=== PATIENT | female | born 2005 | race Caucasian/White ===

== ENCOUNTER 2025-03-26 10:31 | Observation (INO) | payer OTHER, SELFPAY ==
--- OUTSIDE RECORDS SUMMARY | 2025-03-26 10:42 | XMS_ITS ---
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 Name Role Phone Dioni Miranda Primary Care Provider Jose Staley [phone] Est Care Social History Sex Assigned At : Social History Observation Description Sex Assigned At Female Encounters Encounter Location Date Provider Diagnosis [address] [place] [address] 02/12/2025 Jose Staley Plan Of Treatment No Information Progress Notes * Coby WORTHINGTONOB:2005 (19 yo F)Acc No.[id number]:02/12/2025 UNLOCKED PROGRESS NOTE Progress Notes Patient: Neris DAN Provider: Inna Staley :2005 A ge:19 Y S ex:Female Date:02/12/2025 Address:[address] [facility] Pcp:Dioni Miranda Subjective: * Chief Complaints: * [address] Est Care. * Medical History: Objective: * Vitals: Assessment: Plan: * Treatment: * * Electronic signature of Beverley Staley , [id number] on 03/26/2025 at 10:41 AM CDT Sign off status: Pending * Provider: Inna Staley Date: 0 02/12/2025 Generated for Hayde proctor/Fatressag/eTransmitting on: 0 03/26/2025 10:41 AM CDT
--- OUTSIDE RECORDS SUMMARY | 2025-03-26 10:42 | XMS_ITS | Patient Health Record ---
Author Organization [facility] Address [address] [place] [address] Care Team Providers Care [employer] Officer Name Role Phone Dioni Miranda Primary Care Provider Jose Staley Unavailable [phone] Kassie Proctor Unavailable [phone] Lorena Cantor Unavailable [phone] Kirstin Quiros Unavailable [phone] Allergies No Known Allergies Results Component Value Reference Range Notes CBC With Differential/Platel et* Reviewed date:01/21/2025 03:11:15 PM Interpretation: Performing Lab: Notes/Report: CMP 14 Comprehensive Metabol ic Panel* Reviewed date:01/21/2025 03:11:59 PM Interpretation: Performing Lab: Notes/Report: Hepatitis C Virus Antibody w /Rflx to Quantitative Real-time PCR ([id number]) Reviewed date:01/21/2025 03:12:33 PM Interpretation: Performing Lab: Notes/Report: HIV Screen *HIV 1, 2 Ab, p24 Ag ([id number]) Reviewed date:01/21/2025 03:12:55 PM Interpretation: Performing Lab: Notes/Report: RPR w/reflex to TrepSure Reviewed date:01/21/2025 03:13:15 PM Interpretation: Performing Lab: Notes/Report: QuantiFERON-TB Gold Plus ([id number]) Reviewed date:12/21/2024 06:07:30 PM Interpretation: Performing Lab:[facility] [place], [address] [facility], Phone - [phone], Director [facility] Notes/Report: QuantiFERON Incubation Incubation performed. QuantiFERON-TB Gold Plus Negative Negative No response to M tuberculosis antigens detected. Infection with M tuberculosis is unlikely, but high risk individuals should be considered for additional testing (ATS/IDSA/CDC Clinical Practice Guidelines, 2017). The reference range is an Antigen minus Nil result of <0.35 IU/mL. Chemiluminescence immunoassay methodology QuantiFERON Criteria QuantiFERON-TB Gold Plus is a qualitative indirect test for M tuberculosis infection (including disease) and is intended for use in conjunction with risk assessment, radiography, and other medical and diagnostic evaluations. The QuantiFERON-TB Gold Plus result is determined by subtracting the Nil value from either TB antigen (Ag) value. The Mitogen tube serves as a control for the test. QuantiFERON TB1 Ag Value 0.02 QuantiFERON TB2 Ag Value 0.03 QuantiFERON Nil Value 0.02 QuantiFERON Mitogen Value >10.00 12 Panel Urine Drug Screen Reviewed date:10/08/2024 01:09:15 PM Interpretation: Performing Lab: Notes/Report: THC POS SOFIA neg MOP (OPI) neg AMP POS MET POS BAR neg BZO POS MDMA neg MTD neg OXY neg PCP neg BUP POS Test, Urine Reviewed date:10/08/2024 04:27:03 PM Interpretation:Negative Performing Lab: Notes/Report: Negative Test, Urine Neg Negative - Negative RPR w/reflex to TrepSure Reviewed date:12/23/2024 03:14:35 PM Interpretation: Performing Lab:[facility] [place], [address] [facility], Phone - [phone], Director - [place] Notes/Report: RPR Non Reactive Non Reactive Treponemal Antibodies, TPPA Reactive Non Reactive Interpretation: Syphilis: Treponemal Antibodies with Reflex to RPR and RPR Titer, Reverse Screening and Diagnosis Algorithm Treponemal Treponemal Ab RPR, Qn Ab, TPPA Final Interpretation -------- Non N/A N/A No laboratory evidence Reactive of syphilis. Retest in 2-4 weeks if recent exposure is suspected. -------- Reactive Non Non Treponemal antibodies Reactive Reactive not confirmed. Inconclusive for syphilis; potential early syphilis, possible false positive. Retest in 2-4 weeks if recent exposure is suspected. -------- Reactive Non Reactive Treponemal antibodies Reactive detected. Consistent with past or current (potential early) syphilis. -------- Reactive >/=1:1 N/A Treponemal and nontreponemal antibodies detected. Consistent with current or past syphilis. This test is intended ONLY for specimens that have tested positive (reactive) or equivocal for Treponema pallidum antibodies prior to submission for testing. For the full CDC-recommended syphilis screening and diagnosis algorithm, [facility] offers test code 588750 RPR, Rfx Qn RPR/Confirm TP or 098612 T pallidum Screening [place]. CMP 14 Comprehensive Metabol ic Panel* Reviewed date:12/23/2024 03:15:59 PM Interpretation: Performing Lab:[facility], [address] [facility], Phone - [phone], Director - [facility]is[facility] Notes/Report: Glucose 76 70-99 mg/dL BUN 8 6-20 mg/dL Creatinine 0.56 0.57-1.00 mg/dL eGFR 133 >59 mL/min/1.73 BUN/Creatinine Ratio 14 9-23 Sodium 134 134-144 mmol/L Potassium 4.8 3.5-5.2 mmol/L Chloride 98 96-106 mmol/L Carbon Dioxide, Total 20 20-29 mmol/L Calcium 9.6 8.7-10.2 mg/dL Protein, Total 6.8 6.0-8.5 g/dL Albumin 4.1 4.0-5.0 g/dL Globulin, Total 2.7 1.5-4.5 g/dL Bilirubin, Total 0.3 0.0-1.2 mg/dL Alkaline Phosphatase 57 44-121 IU/L AST (SGOT) 12 0-40 IU/L ALT (SGPT) 13 0-32 IU/L Lipid Panel* Reviewed date:12/23/2024 03:13:14 PM Interpretation: Performing Lab:[email or web address] [address] [place] [address], Phone - [phone], Director - [facility] Notes/Report: Cholesterol, Total 152 100-199 mg/dL Triglycerides 53 0-149 mg/dL HDL Cholesterol 82 >39 mg/dL VLDL Cholesterol Yamil 11 5-40 mg/dL LDL Chol Calc (NIH) 59 0-99 mg/dL TSH+Free T4* Reviewed date:12/23/2024 03:13:02 PM Interpretation: Performing Lab:[address], Phone - [phone], Director - [facility] Notes/Report: TSH 1.230 0.450-4.500 uIU/mL T4,Free(Direct) 1.14 0.82-1.77 ng/dL Chlamydia/Gonococcus KOFFI ([id number])* Reviewed date:01/21/2025 03:13:58 PM Interpretation: Performing Lab: Notes/Report: Hepatitis C Virus Antibody w /Rflx to Quantitative Real-time PCR ([id number]) Reviewed date:12/23/2024 03:15:03 PM Interpretation: Performing Lab:[address], Phone - [phone], Director - [facility] Notes/Report: HCV Ab Non Reactive Non Reactive Interpretation: Not infected with HCV unless early or acute infection is suspected (which may be delayed in an immunocompromised individual), or other evidence exists to indicate HCV infection. Vitamin D, 25-Hydroxy* Reviewed date:12/23/2024 03:12:31 PM Interpretation: Performing Lab:[address], Phone - [phone], Director - [facility] Notes/Report: Vitamin D, 25-Hydroxy 21.2 30.0-100.0 ng/mL Vitamin D deficiency has been defined by the [place] of [employer] and an Endocrine Society practice guideline as a level of serum 25-OH vitamin D less than 20 ng/mL (1,2). The Endocrine Society went on to further define vitamin D insufficiency as a level between 21 and 29 ng/mL (2). 1. IOM ([place] of [employer]). 2010. Dietary reference intakes for calcium and D. [place]: The National Academies Press. 2. Sandra MF, Tay CUMMINGS, Mikey ALEJANDRO, et al. Evaluation, treatment, and prevention of vitamin D deficiency: an Endocrine Society clinical practice guideline. JCEM. 2010; 96(7):1911-30. Hepatitis B Surf Ab Quant* Reviewed date:12/23/2024 03:15:45 PM Interpretation: Performing Lab:[facility], [address] [place] [address], Phone - [phone], Director - [place] Notes/Report: Hepatitis B Surf Ab Quant <3.5 Immunity>10 mIU/mL Status of Immunity Anti-HBs Level Inconsistent with Immunity 0.0 - 10.0 Consistent with Immunity >10.0 Hepatitis B Surface Antigen (HBsAg Screen) Reviewed date:12/23/2024 03:13:25 PM Interpretation: Performing Lab:[facility], [address] [facility], [place], Phone - [phone], Director - [place] Notes/Report: HBsAg Screen Negative Negative CBC With Differential/Platel et* Reviewed date:12/23/2024 03:16:58 PM Interpretation: Performing Lab:[facility] [place], [address] [facility], Phone - [phone], Director - [place] Notes/Report: WBC 7.9 3.4-10.8 x10E3/uL RBC 4.53 3.77-5.28 x10E6/uL Hemoglobin 11.9 11.1-15.9 g/dL Hematocrit 37.6 34.0-46.6 % MCV 83 79-97 fL MCH 26.3 26.6-33.0 pg MCHC 31.6 31.5-35.7 g/dL RDW 14.5 11.7-15.4 % Platelets 378 150-450 x10E3/uL Neutrophils 70 Not Estab. % Lymphs 24 Not Estab. % Monocytes 5 Not Estab. % Eos 1 Not Estab. % Basos 0 Not Estab. % Neutrophils (Absolute) 5.5 1.4-7.0 x10E3/uL Lymphs (Absolute) 1.9 0.7-3.1 x10E3/uL Monocytes(Absolute) 0.4 0.1-0.9 x10E3/uL Eos (Absolute) 0.1 0.0-0.4 x10E3/uL Baso (Absolute) 0.0 0.0-0.2 x10E3/uL Immature Granulocytes 0 Not Estab. % Immature Grans (Abs) 0.0 0.0-0.1 x10E3/uL Folate (Folic Acid), Serum* Reviewed date:12/23/2024 03:13:41 PM Interpretation: Performing Lab:[facility] [address], Phone - [phone], Director - [facility] Notes/Report: Folate (Folic Acid), Serum 14.8 >3.0 ng/mL A serum folate concentration of less than 3.1 ng/mL is considered to represent clinical deficiency. Vitamin B12* Reviewed date:12/23/2024 03:12:53 PM Interpretation: Performing Lab:[facility] [address], Phone - [phone], Director - [facility] Notes/Report: Vitamin B12 371 655-4934 pg/mL Hemoglobin A1c* Reviewed date:12/23/2024 03:13:33 PM Interpretation: Performing Lab:[facility] [address], Phone - [phone], [facility] Notes/Report: Hemoglobin A1c 5.2 4.8-5.6 % . Prediabetes: 5.7 - 6.4 Diabetes: >6.4 Glycemic control for adults with diabetes: <7.0 HIV Screen *HIV 1, 2 Ab, p24 Ag ([id number]) Reviewed date:12/23/2024 03:14:51 PM Interpretation: Performing Lab:[facility] [address], [place], Phone - [phone], Director - [facility] Notes/Report: HIV Ab/p24 Ag Screen Non Reactive Non Reactive HIV-1/HIV-2 antibodies and HIV-1 p24 antigen were NOT detected. There is no laboratory evidence of HIV infection. HIV Negative Iron and TIBC* Reviewed date:12/21/2024 06:07:30 PM Interpretation: Performing Lab:[facility], [address] [facility], Phone - [phone], Director - [facility] Notes/Report: Iron Bind.Cap.(TIBC) 409 250-450 ug/dL UIBC 373 131-425 ug/dL Iron 36 27-159 ug/dL Iron Saturation 9 15-55 % Test, Urine Reviewed date:12/05/2024 12:22:39 PM Interpretation:Positive Performing Lab: Notes/Report: Positive Test, Urine POS Negative - Negative Reason For Referral No Information Medications Medication SIG (Take, Route, Frequency, Duration) Notes Start Date End Date Status ARIPiprazole 5 MG 0.5 tablet (2.5mg) o nce daily in the PM for 4 days, THEN INCREASE to 1 tablet (5mg) once daily in the PM Orally for 30 days Active hydrOXYzine HCl 50 MG 0.5-1 tablet once daily at bedtime as needed for sleep Orally for 30 days Active Prazosin HCl 1 MG 1 capsule once daily in the AM Orally for 30 days Active Ferrous Sulfate 325 (65 Fe) MG 1 tablet Orally Three times a Week for 30 days 12/26/2024 Active Ergocalciferol 1.25 MG (87940 UT) 1 capsule Orally once weekly for 30 days 12/26/2024 Active Social History Tobacco Use: Social History Observation Description Date Details (start date - stop date) Current Smoker NA - NA Sex Assigned At : Social History Observation Description Sex Assigned At Female PRAPARE Question Answer Notes Date Completed/Updated: 12/23/2024 What is your current housing situation? I do not have housing (staying with others, in a hotel, in a penitentiary, living outside on the street, on a beach, or in a park) Are you worried about losing your housing? No What is the highest level of school that you have finished? High school diploma or GED What is your current work situation? Unemployed and seeking work In the past year, have you o r any family members you live with been unable to get any of the following when it was really needed? Check all that apply Food,Clothing,Medicine or any health care (medical, dental, mental health or vision),Phone Has lack of transportation k ept you from medical appointments, meetings, work or from getting things needed for daily living? Yes, it has kept me from medical appointments or from getting my medications How often do you see or talk to people that you care about and feel close to? (For example: talking to friends on the phone, visiting friends or family, going to taoist or club meetings) More than 5 times a week How stressed are you? Stress is when someone feels tense, nervous, anxious, or can\t sleep at night because their mind is troubled Very much In the past year have you sp ent more than 2 nights in a row in a intermediate, residential, custodial center, or juvenile correctional facility? Yes Do you feel physically and e motionally safe where you currently live? Yes In the past year, have you b een afraid of your partner or ex-partner? No PRAPARE Score: 13 Tobacco Control (Standard) Question Answer Notes Tobacco use: Current smoker Additional Findings: Tobacco user e-cigarette Problems Problem Type SNOMED Code ICD Code Onset Dates Problem Status W/U Status Risk Notes Problem Tobacco user (273658860) Nicotine dependence, unspecified, uncomplicated (F17.200) Active confirmed Problem Posttraumatic stress disorder (31770422) PTSD (post-traumatic stress disorder) (F43.10) Active confirmed Problem Attention deficit hyperactivity disorder (069382839) ADHD (attention deficit hyperactivity disorder) (F90.9) Active confirmed Problem Generalized anxiety disorder (63676850) TUAN (generalized anxiety disorder) (F41.1) Active confirmed Problem Bipolar disorder (71792753) Bipolar disorder (F31.9) Active confirmed Problem Major depressive disorder (113186032) MDD (major depressive disorder) (F32.9) Active confirmed Problem Methamphetamine abuse (949827127) Methamphetamine abuse (F15.10) Active confirmed Problem Opioid abuse (6938109) Opiate abuse, continuous (F11.10) Active confirmed Problem Opioid use disorder (0407274828) Opioid use disorder (F11.99) Active confirmed Vital Signs Heart Rate 91 /min 03/19/2025 Temperature 98.2 degrees Fahrenheit 01/13/2025 Respiratory Rate 16 /min 03/19/2025 Blood pressure diastolic 62 mm Hg 03/19/2025 Oximetry 98 % 03/19/2025 Height 63 in 03/19/2025 Blood pressure systolic 112 mm Hg 03/19/2025 Weight 161.0 lbs 03/19/2025 BMI 28.52 kg/m2 03/19/2025 Encounters Encounter Location Date Provider Diagnosis [address] [place] [address] 12/05/2024 Kirstin Quiros Opiate abuse, continuous F11.10 [facility] [address] [address] 12/11/2024 Dioni Miranda Exposure to potentia l infection Z20.9 ; Opioid use disorder F11.99 ; Bipolar disorder F31.9 ; TUAN (generalized anxiety disorder) F41.1 ; MDD (major depressive disorder) F32.9 ; PTSD (post-traumatic stress disorder) F43.10 ; ADHD (attention deficit hyperactivity disorder) F90.9 ; Methamphetamine abuse F15.10 and Nicotine dependence, unspecified, uncomplicated F17.[address] [address] 10/08/2024 Kirstin Quiros Opioid use disorder F11.99 ; Nicotine dependence, unspecified, uncomplicated F17.200 and Exposure to potential infection Z20.[address] [place] [address] 12/09/2024 Lorena Cantor Adult general medica l exam Z00.00 and Opiate abuse, continuous F11.[address] [address] 12/10/2024 Dioni Miranda Bipolar disorder F31 .9 ; TUAN (generalized anxiety disorder) F41.1 ; MDD (major depressive disorder) F32.9 ; PTSD (post-traumatic stress disorder) F43.10 ; ADHD (attention deficit hyperactivity disorder) F90.9 ; Methamphetamine abuse F15.10 ; Opioid use disorder F11.99 and Nicotine dependence, unspecified, uncomplicated F17.200 [facility] [address] [place] [address] 12/11/2024 Lorena Cantor [facility] th new doctor, encounter for Z71.89 ; Screening for deficiency anemia Z13.0 ; Exposure to potential infection Z20.9 and Nicotine dependence, unspecified, uncomplicated F17.[address] [address] 01/13/2025 Dioni Miranda Bipolar disorder F31 .9 ; TUAN (generalized anxiety disorder) F41.1 ; MDD (major depressive disorder) F32.9 ; PTSD (post-traumatic stress disorder) F43.10 ; ADHD (attention deficit hyperactivity disorder) F90.9 ; Methamphetamine abuse F15.10 ; Opioid use disorder F11.99 and Nicotine dependence, unspecified, uncomplicated F17.[address] [address] 03/19/2025 Jose Staley Iron deficiency E61. 1 ; Immunization counseling Z71.89 ; Opioid use disorder F11.99 ; Methamphetamine abuse F15.10 and Bipolar disorder F31.[address] [address] 12/10/2024 Dioni Miranda [address] [address] 12/10/[address] [address] 12/23/[address] [address] 12/24/2024 Kassie Proctor [address] [address] 01/02/2025 Dioni Miranda [address] [address] 01/22/2025 Dioni Miranda Assessments Encounter Date Diagnosis (ICD Code) Assessment Notes Treatment Notes Treatment Clinical Notes Section Notes 03/19/2025 Iron deficiency (ICD-10 - E61.1) CONTINUE WITH IRON 03/19/2025 Immunization counseling (ICD-10 - Z71.89) ADVISED HEP B IMMUNIZATION AFTER DELIVERY 01/13/2025 Bipolar disorder (ICD-10 - F31.9) Duration (acute/chronic), stability (controlled/uncont rolled): Chronic, uncontrolled, patient not currently taking medications, has reportedly spoken with OBGYN who is agreeable to starting medications as prescribed, see HPI Current medications/effica cy: N/A Previous medication trials: N/A Current/previous therapies: Not currently, hoping to establish care Examination as documented - see pertinent aspects of office visit documentation. Pertinent diagnostics: LABS COMPLETED IN 12/2024, SEE CHART Differential diagnoses: RECOMMENDATIONS: START aripiprazole as prescribed to assist with mood/stability - educated patient/guardian on adverse effects, risks and benefits, as well as alternative treatments START hydroxyzine as prescribed to assist with sleep - educated patient/guardian on adverse effects, risks and benefits, as well as alternative treatments START prazosin as prescribed to assist with PTSD - educated patient/guardian on adverse effects, risks and benefits, as well as alternative treatments Consume well balanced diet, preferably low in saturated fats (solid at room temperature, such as butter, margarine, Crisco, etc) and low in sodium (<2,000mg per day). Consume plenty of fruits/vegetables, healthy grains/whole grains, unsaturated/health y fats (liquid at room temperature, such as olive oil, sunflower seed oil, canola, vegetable, etc.). Exercise regularly - Develop an exercise routine. 30 minutes of moderate exercise (walking at a brisk pace) 5 times per week is recommended. You should work hard enough to cause a sweat but still be able to talk with others while exercising. Exercise improves overall health - improves blood pressure and blood sugar, helps control weight, reduces stress, and improves mood. Practice stress reduction techniques, such as guided imagery, journaling, aromatherapy, acupuncture/acupre ssure, deep breathing, etc. Practice healthy sleep hygiene - maintain regular routine, no caffeine after 1PM, no exercise 1-2 hours prior to bedtime, keep bedroom dark and cool, no TV or electronics while in bed. Consider melatonin as needed. Consider cognitive behavioral therapy for insomnia (CBT-I). Consider/Continue therapy. Consider/Continue substance cessation therapy as needed - contact office if desiring medication assisted therapy. Manage co-morbid conditions. Continue monitoring symptoms - report persistent or worsening/concerni ng symptoms to the office or go to the ER. For mental health CRISIS, please reach out to [phone] (National Suicide and Crisis Lifeline), 911, go to the emergency department, or contact the [facility] Crisis Unit/Team. Follow up as scheduled in 4 weeks or sooner if necessary. Follow up with PCP and/or other specialists as advised. NEXT STEP: Consider medication adjustments as needed. 10/08/2024 Nicotine dependence, unspecified, uncomplicated (ICD-10 - F17.200) 10/08/2024 Opioid use disorder (ICD-10 - F11.99) 12/05/2024 Opiate abuse, continuous (ICD-10 - F11.10) 12/09/2024 Adult general medical exam (ICD-10 - Z00.00) 12/10/2024 Bipolar disorder (ICD-10 - F31.9) Duration (acute/chronic), stability (controlled/uncont rolled): Chronic, uncontrolled, patient not currently taking medications, see HPI Current medications/effica cy: N/A Previous medication trials: N/A Current/previous therapies: Not currently, hoping to establish care Examination as documented - see pertinent aspects of office visit documentation. Pertinent diagnostics: LABS ORDERED TODAY - WILL HAVE [facility] STAFF COLLECT Differential diagnoses: RECOMMENDATIONS: START aripiprazole as prescribed to assist with mood/stability - educated patient/guardian on adverse effects, risks and benefits, as well as alternative treatments START hydroxyzine as prescribed to assist with sleep - educated patient/guardian on adverse effects, risks and benefits, as well as alternative treatments START prazosin as prescribed to assist with PTSD - educated patient/guardian on adverse effects, risks and benefits, as well as alternative treatments Consume well balanced diet, preferably low in saturated fats (solid at room temperature, such as butter, margarine, Crisco, etc) and low in sodium (<2,000mg per day). Consume plenty of fruits/vegetables, healthy grains/whole grains, unsaturated/health y fats (liquid at room temperature, such as olive oil, sunflower seed oil, canola, vegetable, etc.). Exercise regularly - Develop an exercise routine. 30 minutes of moderate exercise (walking at a brisk pace) 5 times per week is recommended. You should work hard enough to cause a sweat but still be able to talk with others while exercising. Exercise improves overall health - improves blood pressure and blood sugar, helps control weight, reduces stress, and improves mood. Practice stress reduction techniques, such as guided imagery, journaling, aromatherapy, acupuncture/acupre ssure, deep breathing, etc. Practice healthy sleep hygiene - maintain regular routine, no caffeine after 1PM, no exercise 1-2 hours prior to bedtime, keep bedroom dark and cool, no TV or electronics while in bed. Consider melatonin as needed. Consider cognitive behavioral therapy for insomnia (CBT-I). Consider/Continue therapy. Consider/Continue substance cessation therapy as needed - contact office if desiring medication assisted therapy. Manage co-morbid conditions. Continue monitoring symptoms - report persistent or worsening/concerni ng symptoms to the office or go to the ER. For mental health CRISIS, please reach out to [phone] ([employer] Suicide and Crisis Lifeline), 911, go to the emergency department, or contact the [facility] Crisis Unit/Team. Follow up as scheduled in 2 weeks VIA [facility] FROM [facility] or sooner if necessary. Follow up with PCP and/or other specialists as advised. NEXT STEP: Review labs. Consider medication adjustments as needed. 12/11/2024 Establishing care with new doctor, encounter for (ICD-10 - Z71.89) 12/11/2024 Screening for deficiency anemia (ICD-10 - Z13.0) 12/11/2024 Exposure to potential infection (ICD-10 - Z20.9) 12/11/2024 Opioid use disorder (ICD-10 - F11.99) 01/13/2025 TUAN (generalized anxiety disorder) (ICD-10 - F41.1) See assessment and plan for bipolar disorder 12/10/2024 TUAN (generalized anxiety disorder) (ICD-10 - F41.1) See assessment and plan for bipolar disorder 12/09/2024 Opiate abuse, continuous (ICD-10 - F11.10) 10/08/2024 Exposure to potential infection (ICD-10 - Z20.9) 03/19/2025 Opioid use disorder (ICD-10 - F11.99) IN REMISSION 01/13/2025 MDD (major depressive disorder) (ICD-10 - F32.9) See assessment and plan for bipolar disorder 03/19/2025 Methamphetamine abuse (ICD-10 - F15.10) IN REMISSION 12/10/2024 MDD (major depressive disorder) (ICD-10 - F32.9) See assessment and plan for bipolar disorder 12/11/2024 Bipolar disorder (ICD-10 - F31.9) 12/11/2024 Exposure to potential infection (ICD-10 - Z20.9) 12/11/2024 Nicotine dependence, unspecified, uncomplicated (ICD-10 - F17.200) 12/11/2024 TUAN (generalized anxiety disorder) (ICD-10 - F41.1) 01/13/2025 PTSD (post-traumatic stress disorder) (ICD-10 - F43.10) See assessment and plan for bipolar disorder 12/10/2024 PTSD (post-traumatic stress disorder) (ICD-10 - F43.10) See assessment and plan for bipolar disorder 03/19/2025 Bipolar disorder (ICD-10 - F31.9) DOING WELL 12/10/2024 ADHD (attention deficit hyperactivity disorder) (ICD-10 - F90.9) Duration (acute/chronic), stability (controlled/uncont rolled): Chronic, uncontrolled, not currently taking medications Current medications/effica cy: N/A Previous medication trials: N/A Current/previous therapies: Not currently, hoping to establish care Examination as documented - see pertinent aspects of office visit documentation. Pertinent diagnostics: LABS ORDERED TODAY - WILL HAVE [facility] STAFF COLLECT Differential diagnoses: RECOMMENDATIONS: Patient agreeable to focusing on mood management at this time - will consider medication specifically for this in the future pending improvements in mood/stability. Continue/modify other medications as prescribed - educated patient/guardian on adverse effects, risks and benefits, as well as alternative treatments Consume well balanced diet, preferably low in saturated fats (solid at room temperature, such as butter, margarine, Crisco, etc) and low in sodium (<2,000mg per day). Consume plenty of fruits/vegetables, healthy grains/whole grains, unsaturated/health y fats (liquid at room temperature, such as olive oil, sunflower seed oil, canola, vegetable, etc.). Exercise regularly - Develop an exercise routine. 30 minutes of moderate exercise (walking at a brisk pace) 5 times per week is recommended. You should work hard enough to cause a sweat but still be able to talk with others while exercising. Exercise improves overall health - improves blood pressure and blood sugar, helps control weight, reduces stress, and improves mood. Practice stress reduction techniques, such as guided imagery, journaling, aromatherapy, acupuncture/acupre ssure, deep breathing, etc. Practice healthy sleep hygiene - maintain regular routine, no caffeine after 1PM, no exercise 1-2 hours prior to bedtime, keep bedroom dark and cool, no TV or electronics while in bed. Consider melatonin as needed. Consider cognitive behavioral therapy for insomnia (CBT-I). Consider/Continue therapy. Consider/Continue substance cessation therapy as needed - contact office if desiring medication assisted therapy. Manage co-morbid conditions. Continue monitoring symptoms - report persistent or worsening/concerni ng symptoms to the office or go to the ER. For mental health CRISIS, please reach out to [phone] ([facility]), 911, go to the emergency department, or contact the [facility] Crisis Unit/Team. Follow up as scheduled in 2 weeks VIA [facility] FROM [facility] or sooner if necessary. Follow up with PCP and/or other specialists as advised. NEXT STEP: Consider starting medications specifically for this - start with nonstimulant options first. 01/13/2025 ADHD (attention deficit hyperactivity disorder) (ICD-10 - F90.9) Duration (acute/chronic), stability (controlled/uncont rolled): Chronic, uncontrolled, not currently taking medications Current medications/effica cy: N/A Previous medication trials: N/A Current/previous therapies: Not currently, hoping to establish care Examination as documented - see pertinent aspects of office visit documentation. Pertinent diagnostics: LABS COMPLETED IN 12/2024, SEE CHART Differential diagnoses: RECOMMENDATIONS: Patient agreeable to focusing on mood management at this time - will consider medication specifically for this in the future pending improvements in mood/stability. Continue/modify other medications as prescribed - educated patient/guardian on adverse effects, risks and benefits, as well as alternative treatments Consume well balanced diet, preferably low in saturated fats (solid at room temperature, such as butter, margarine, Crisco, etc) and low in sodium (<2,000mg per day). Consume plenty of fruits/vegetables, healthy grains/whole grains, unsaturated/health y fats (liquid at room temperature, such as olive oil, sunflower seed oil, canola, vegetable, etc.). Exercise regularly - Develop an exercise routine. 30 minutes of moderate exercise (walking at a brisk pace) 5 times per week is recommended. You should work hard enough to cause a sweat but still be able to talk with others while exercising. Exercise improves overall health - improves blood pressure and blood sugar, helps control weight, reduces stress, and improves mood. Practice stress reduction techniques, such as guided imagery, journaling, aromatherapy, acupuncture/acupre ssure, deep breathing, etc. Practice healthy sleep hygiene - maintain regular routine, no caffeine after 1PM, no exercise 1-2 hours prior to bedtime, keep bedroom dark and cool, no TV or electronics while in bed. Consider melatonin as needed. Consider cognitive behavioral therapy for insomnia (CBT-I). Consider/Continue therapy. Consider/Continue substance cessation therapy as needed - contact office if desiring medication assisted therapy. Manage co-morbid conditions. Continue monitoring symptoms - report persistent or worsening/concerni ng symptoms to the office or go to the ER. For mental health CRISIS, please reach out to [phone] ([facility]), 911, go to the emergency department, or contact the [facility] Crisis Unit/Team. Follow up as scheduled in 4 weeks or sooner if necessary. Follow up with PCP and/or other specialists as advised. NEXT STEP: Consider starting medications specifically for this - start with nonstimulant options first. 12/11/2024 MDD (major depressive disorder) (ICD-10 - F32.9) 12/11/2024 PTSD (post-traumatic stress disorder) (ICD-10 - F43.10) 12/10/2024 Methamphetamine abuse (ICD-10 - F15.10) Duration (acute/chronic), stability (controlled/uncont rolled): Chronic, Methamphetamine, using since age 17, injected previously, using multiple times daily - currently in [facility] for treatment, recent found out she is Current medications/effica cy: N/A Previous medication trials: N/A Current/previous therapies: Not currently, hoping to establish care Examination as documented - see pertinent aspects of office visit documentation. Pertinent diagnostics: LABS ORDERED TODAY - WILL HAVE [facility] STAFF COLLECT Differential diagnoses: RECOMMENDATIONS: Consider/Continue therapy. Consider/Continue substance cessation therapy as needed - contact office if desiring medication assisted therapy. Manage co-morbid conditions. Continue monitoring symptoms - report persistent or worsening/concerni ng symptoms to the office or go to the ER. For mental health CRISIS, please reach out to [phone] ([facility]), 911, go to the emergency department, or contact the [facility] Crisis Unit/Team. Follow up as scheduled or sooner if necessary. Follow up with PCP and/or other specialists as advised. NEXT STEP: Consider MAT as needed. 01/13/2025 Methamphetamine abuse (ICD-10 - F15.10) Duration (acute/chronic), stability (controlled/uncont rolled): Chronic, Methamphetamine, using since age 17, injected previously, using multiple times daily - last use approximately 12/08/2024 when patient found out she was Current medications/effica cy: N/A Previous medication trials: N/A Current/previous therapies: Not currently, hoping to establish care Examination as documented - see pertinent aspects of office visit documentation. Pertinent diagnostics: LABS COMPLETED IN 12/2024, SEE CHART Differential diagnoses: RECOMMENDATIONS: Consider/Continue therapy. Consider/Continue substance cessation therapy as needed - contact office if desiring medication assisted therapy. Manage co-morbid conditions. Continue monitoring symptoms - report persistent or worsening/concerni ng symptoms to the office or go to the ER. For mental health CRISIS, please reach out to [phone] ([facility]), 911, go to the emergency department, or contact the [facility] Crisis Unit/Team. Follow up as scheduled or sooner if necessary. Follow up with PCP and/or other specialists as advised. NEXT STEP: Consider MAT as needed. 01/13/2025 Opioid use disorder (ICD-10 - F11.99) Duration (acute/chronic), stability (controlled/uncont rolled): Chronic, fentanyl, multiple times daily, since about age 18, snorted - last use approximately 12/08/2024 when patient found out she was Current medications/effica cy: N/A Previous medication trials: N/A Current/previous therapies: Not currently, hoping to establish care Examination as documented - see pertinent aspects of office visit documentation. Pertinent diagnostics: LABS COMPLETED IN 12/2024, SEE CHART Differential diagnoses: RECOMMENDATIONS: Consider/Continue therapy. Consider/Continue substance cessation therapy as needed - contact office if desiring medication assisted therapy. Manage co-morbid conditions. Continue monitoring symptoms - report persistent or worsening/concerni ng symptoms to the office or go to the ER. For mental health CRISIS, please reach out to [phone] ([facility]), 911, go to the emergency department, or contact the [facility] Crisis Unit/Team. Follow up as scheduled or sooner if necessary. Follow up with PCP and/or other specialists as advised. NEXT STEP: Consider MAT as needed. 12/10/2024 Opioid use disorder (ICD-10 - F11.99) Duration (acute/chronic), stability (controlled/uncont rolled): Chronic, fentanyl, multiple times daily, since about age 18, snorted - currently in [facility] for treatment, recent found out she is Current medications/effica cy: N/A Previous medication trials: N/A Current/previous therapies: Not currently, hoping to establish care Examination as documented - see pertinent aspects of office visit documentation. Pertinent diagnostics: LABS ORDERED TODAY - WILL HAVE U STAFF COLLECT Differential diagnoses: RECOMMENDATIONS: Consider/Continue therapy. Consider/Continue substance cessation therapy as needed - contact office if desiring medication assisted therapy. Manage co-morbid conditions. Continue monitoring symptoms - report persistent or worsening/concerni ng symptoms to the office or go to the ER. For mental health CRISIS, please reach out to [phone] ([facility]), 911, go to the emergency department, or contact the [facility] Unit/Team. Follow up as scheduled or sooner if necessary. Follow up with PCP and/or other specialists as advised. NEXT STEP: Consider MAT as needed. 12/11/2024 ADHD (attention deficit hyperactivity disorder) (ICD-10 - F90.9) 12/11/2024 Methamphetamine abuse (ICD-10 - F15.10) 01/13/2025 Nicotine dependence, unspecified, uncomplicated (ICD-10 - F17.200) Duration (acute/chronic), stability (controlled/uncont rolled): Chronic, Vapes, daily, has been vaping since about age 11 - patient verbalized no intention to quit at this time Current medications/effica cy: N/A Previous medication trials: N/A RECOMMENDATIONS: Consider/Continue therapy. Consider/Continue substance cessation therapy as needed - contact office if desiring medication assisted therapy. Manage co-morbid conditions. Continue monitoring symptoms - report persistent or worsening/concerni ng symptoms to the office or go to the ER. For mental health CRISIS, please reach out to [phone] ([facility]), 911, go to the emergency department, or contact the [facility]/Team. Follow up as scheduled or sooner if necessary. Follow up with PCP and/or other specialists as advised. NEXT STEP: Consider MAT as needed. 12/10/2024 Nicotine dependence, unspecified, uncomplicated (ICD-10 - F17.200) Duration (acute/chronic), stability (controlled/uncont rolled): Chronic, Vapes, daily, has been vaping since about age 11 - currently in [facility], recent found out she is Current medications/effica cy: N/A Previous medication trials: N/A RECOMMENDATIONS: Consider/Continue therapy. Consider/Continue substance cessation therapy as needed - contact office if desiring medication assisted therapy. Manage co-morbid conditions. Continue monitoring symptoms - report persistent or worsening/concerni ng symptoms to the office or go to the ER. For mental health CRISIS, please reach out to [phone] ([facility]), 911, go to the emergency department, or contact the [facility] Unit/Team. Follow up as scheduled or sooner if necessary. Follow up with PCP and/or other specialists as advised. NEXT STEP: Consider MAT as needed. 12/11/2024 Nicotine dependence, unspecified, uncomplicated (ICD-10 - F17.200) 10/08/2024 Other Patient agrees to take medication as prescribed. Discussed medication side effects, adverse effects, risks, benefits, as well as interactions. Encouraged non-use of opioids and other illicit substances. Has naloxone. Discontinuing buprenorphine increases the risk of overdose upon return to illicit opioid use. Use of alcohol or benzodiazepines with buprenorphine increases the risk of overdose and . Education provided about safe storage of medications. Encouraged participation in recovery groups/counseling services. Contact office with questions or concerns. 12/09/2024 Other Continue treatment as recommended by [facility] staff. Encouraged patient to obtain routine medical care with patient's own primary care provider or establish as a patient at [facility] if no current primary care provider. Plan Of Treatment No Information Insurance Providers Payer Name Payer Address Payer Phone Subscriber Number Group Number Insured Name Patient Relationship to Insured Coverage Start Date Coverage End Date Point [address] [place] [address] [id number] Neris Guerin Self - patient is the insured 4 [employer] [address] [place] [address] [id number] Neris Guerin Self - patient is the insured 3 Medications Administered Medication Instructions Date of Administration Dosage Notes Vivitrol 04/26/2023 380 mg Natalia Jean 04/26/2023 09:28:30 AM >Injection given in L gluteal. Patient tolerated injection well. Medical (General) History Surgical History Surgery Date(Month/Year) Hospitalization History Reason Date(Month/Year)
--- OUTSIDE RECORDS SUMMARY | 2025-03-26 10:42 | XMS_ITS | Referral Summary ---
Author Organization [facility] Address [address] [place] [address] Care Team Providers Care Optics Technical Officer Name Role Phone Miscellaneous, Not In File Primary Care Provider Unavailable Encounters Date Type Department Care Team Description 03/24/2025 Telephone [facility]etrics and [facility]necology Clinic [address] [place] [address] Outpatient [facility] 3rd Floor [address] [place] [phone] Palma Kwon, KIM 03/24/2025 Telephone [facility]etrics [facility] Clinic [address] [place] [address] Floor [address] [place] [phone] Palma Kwon, KIM 03/23/2025 Telephone Ob[facility]etrics [facility]necology Clinic [address] [place] [address] 3rd Floor [address] [place] [phone] Mary Valdes from Last 3 Months Allergies No known active allergies Medications No known medications Active Problems Problem Noted Date Diagnosed Date CARE: PSA 12/05/2024 Overview (12/05/2024): - UDS+: amphetamine, benzos, MJ, cocaine, fentanyl 06/2024 Due to the increased risks of using illicit drugs in , and the increased rates relapse, initiation and continuation of medically-assisted treatment is strongly recommended in conjunction with ongoing counseling and therapy. We recommend initiating treatment with buprenorphine, a partial opioid agonist, at this time. We reviewed that continuation of this medication is indefinite, as it is the standard of care for treatment of opioid use disorder. We reviewed that her required dose may increase throughout , especially in the third trimester. Additionally, buprenorphine use in conjunction with a benzodiazepine has been associated with respiratory depression, overdose, and ; these two medications should not be used together. In terms of risks, we reviewed that there does not appear to be an increased risk of congenital anomalies in infants born to mothers on maintenance therapy. abstinence syndrome is seen these infants about 60% of the time. All babies born to mothers who have been exposed to any opioids, including buprenorphine, will need to be monitored for signs of withdrawal, and may required prolonged admission for treatment. Additionally, we discussed the mandatory involvement of Social Work and the Department of Family Services for all patients on buprenorphine after the of her baby. If abstinence from illicit drug use is sustained, an ultrasound at 32-34 weeks will be obtained to follow growth; serial ultrasounds and surveillance will be recommended if on-going use is suspected. Urine toxicologies will be sent with every visit to document adherence to her buprenorphine regimen, and avoidance of other substances. An Anesthesia and Medicine consult will be obtained in the third trimester to review pain management during labor and delivery, and JAJA. We discussed that continuation of her third-trimester buprenorphine dose through labor, delivery, and is strongly recommended to prevent withdrawal. Additionally, we discussed that buprenorphine use appears safe in breast feeding, and in the absence of ongoing illicit drug use, highly encouraged to decrease rates and severity of JAJA. We discussed the highest rates of relapse occurs peripartum and due to the difficulty of caring for a . Close follow-up with CARE will be recommended at that time. Buprenorphine consent signed: yes * CARE in contract signed: yes * UDS obtained with verbal consent: yes * CMP/Hep C sent: yes * PBHS referred: yes * Narcan used reviewed and Rx dispensed: * Induction plans: * Buprenorphine dose: * UDS today: * PMDP review: [facility]: * [place]: * Ajit CMP: planned Social work referral: planned Third trimester Psychiatry visit: planned Third trimester anesthesia consult: planned Third trimester Medicine consult: planned Third trimester Hepatitis C antibody: planned 32-34 week growth scan: planned Buprenoprhine prescription given today: mg x #* tabls CARE: 12/05/2024 Overview (12/05/2024): 1st Trimester: [] Dating Criteria: [] Labs: Rh *, Ab *, CBC *, Rubella *, VZV *, HIV *, RPR *, HepBSAg *, Hep C Ab * [] GC/CT/Trich: [] UCx: [] vitamins [] Genetic Screening: [] CF/SMA carrier screening: [] Hgb electrophoresis: [] Pap: [] EPDS: PNBHS referral (if indicated) [] ASA at 12 weeks (if indicated) [] DM screening: HgbA1c * (<5.7: no further test until 2T screen, 5.7-6.5: obtain 2h GTT, >6.5: refer to CDP) [] Feeding Preferences: benefits of discussed with patient at RN IOB 2nd Trimester: [] Anatomy ultrasound: [] CBC: [] 1hr GTT (24-28wks): [] Flu Shot (Jul-Oct): [] Tdap (27-36wks): [] Rhogam (if Rh neg): [] Childbirth classes discussed [] education (colostrum, expected breast changes, plan for RTW) and breast pump ordered [] Second trimester education packet 3rd Trimester: [] CBC/HIV/RPR/T&S: [] GBS: [] GC/CT/Trich (if indicated): [] RSV vaccine [] Final discussion (S2S, Baby Friendly, LC Support, PP experience) [] Third trimester education packet Last visit: [] Last clinic visit SVE: [] IOL start agent: [] Epidural: [] Consents signed: Counseling: [] Method of delivery: [] Bottle of CHG 4% and hand out provided @ 36wks (if planned) [] Timing of delivery: [] MOC: [] MOF: [] COVID-19 vaccine counseling [] education: completed in all 3 trimesters [] Supervisor Rod Placing: [] Car seat discussed [] PP depression counseling Polysubstance abuse 06/18/2024 Cigarette smoker 06/18/2024 Other chest pain 06/18/2024 Opioid withdrawal 06/17/2024 Estimated Date of Delivery Comme nts Yes 07/11/2025 Based on Ultraso und Social History Tobacco Use Types Packs/Day Years Used Date Smoking Tobacco: Never Smokeless Tobacco: Never Alcohol Use Standard Drinks/Week Comments Never 0 (1 standard drink = 0.6 oz pur e alcohol) [facility] Utilities Answer Date Recorded In the past 12 months has e [employer], oil, or water [employer] threatened to shut off services in your home? No 06/18/2024 Social Connection and Isolation Panel [NHANES] A nswer Date Recorded In a typical week, how many times do you talk on the phone with family, friends, or neighbors? Three times a week 06/18/2024 How often do you get togethe r with friends or relatives? Three times a week 06/18/2024 How often do you attend chur ch or druze services? Never 06/18/2024 Do you belong to any clubs o r organizations such as hoahaoism groups, unions, fraternal or athletic groups, or school groups? No 06/18/2024 How often do you attend meet ings of the clubs or organizations you belong to? Never 06/18/2024 Are you , , di vorced, , never , or living with a partner? Never 06/18/2024 AUDIT-C Answer Date Recorded Q1: How often do you have a drink containing alc ohol? Never 12/21/2020 Average Number of Drinks Not on file 021 Frequency of Binge Drinking Not on file 07/2021 Overall Financial Resource Strain (CARDIA) Answe r Date Recorded How hard is it for you to pa y for the very basics like food, housing, medical care, and heating? Hard 06/18/2024 Hunger Vital Sign Answer Date Recorded Within the past 12 months, y ou worried that your food would run out before you got the money to buy more. Sometimes true Within the past 12 months, t he food you bought just didn't last and you didn't have money to get more. Sometimes true 05/2024 PRAPARE - Transportation Answer Date Re corded In the past 12 months, has l ack of transportation kept you from medical appointments or from getting medications? No 05/2024 In the past 12 months, has l ack of transportation kept you from meetings, work, or from getting things needed for daily living? No 06/18/2024 Housing Stability Vital Sign Answer Adria e Recorded In the last 12 months, was t here a time when you were not able to pay the mortgage or rent on time? No 06/18/2024 In the past 12 months, how m any times have you moved where you were living? 1 06/18/2024 At any time in the past 12 m [facility], were you homeless or living in a snf (including now)? No 06/18/2024 Personal Safety Answer Date Recorded Have you ever been in or are you currently in a harmful physical or emotional relationship or is someone making you feel afraid or unsafe? Denies 06/23/2024 Estimated Date of Delivery Comme nts Yes 07/11/2025 Based on Ultraso und Sex and Gender Information Value Date Recorded Sex Assigned at Not on file Legal Sex Female 11:13 AM ELECTRICAL LOGGING OPERATOR Gender Identity Not on file Sexual Orientation Not on file Last Filed Vital Signs Vital Sign Reading Time Taken Comments Blood Pressure 101/66 12/08/2024 10:27 AM ELECTRICAL LOGGING OPERATOR Pulse 85 12/08/2024 10:27 AM ELECTRICAL LOGGING OPERATOR Temperature 36.4 C (97.6 F) 06/23/2024 2:00 PM CDT Respiratory Rate 18 06/23/2024 2:00 PM CDT Oxygen Saturation 96% 06/23/2024 2:00 PM CDT Inhaled Oxygen Concentration - - Weight 61.2 kg (135 lb) 06/23/2024 2:00 PM CDT Height 160 cm (5' 3) 06/23/2024 2:00 PM CDT Body Mass Index 23.91 06/23/2024 2:00 PM CDT Plan of Treatment Not on file Procedures Procedure Name Priority Date/Time Associated Diagnosis Comments HEPATITIS C ANTIBODY STAT 12/08/2024 10:37 AM ELECTRICAL LOGGING OPERATOR from Last 3 Months or Most Recently Relevant to Health Maintenance Results * Hepatitis C antibody Blood (12/08/2024 10:37 AM ELECTRICAL LOGGING OPERATOR) Hep C Ab Nonreactive Nonreactive Comment: Antibodies to HCV not detected. Does NOT exclude the possibility of recent exposure to HCV. Current interpretive data was last revised on 22 Interpretive Data Nonreactive: Antibodies to HCV not detected. Does NOT exclude the possibility of recent exposure to HCV. Equivocal: Equivocal for HCV antibodies. Supplemental molecular testing will be automatically performed to determine infection status in accordance with current CDC screening recommendations. Reactive: Positive for HCV antibodies. This may represent current or past HCV infection. Supplemental molecular testing will be automatically performed to determine current infection status in accordance with current CDC screening recommendations. Interpretive data was last revised on 2020. Blood 12/08/2024 10:3 7 AM ELECTRICAL LOGGING OPERATOR 12/08/2024 12:45 PM ELECTRICAL LOGGING OPERATOR us Carola De La Rosa MD LAB MICROBIOLOGY - GENERAL ORDER CARLOS Final Result [facility] [address] Department [place] [address] from Last 3 Months or Most Recently Relevant to Health Maintenance Insurance * Guarantor: BENJY BOSS Account Type Relation to Patient Date of Phone Billing Address Personal/Family Other 1984 [address] [facility] Advance Directives For more information, please contact: [phone] Documents on File Type Date Recorded Patient [employer]s [employer] 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
--- OUTSIDE RECORDS SUMMARY | 2025-03-26 10:42 | XMS_ITS | Clinical Summary ---
Author Organization [facility] Address [address] [place] [address] Phone Care Team Providers Care Wire Strander Name Role Phone Provider, None Primary Care Provider Unavailabl e Medications * This document contains information received from the source organization and may not represent a complete record from that organization. Multivitamin-Mi nerals (multiple vitami/antioxid ants) Tablet Take 1 Tablet by mouth daily. 30 Tablet 3 Active nicotine (NICODERM CQ) 21 MG/24HR PATCH 24 HR 1 Patch by Transdermal route daily. 30 Patch 3 Active Active Problems Problem Noted Date Diagnosed Date Opioid withdrawal 02/28/2023 Tobacco abuse 02/28/2023 Drug overdose, multiple drug s, accidental or unintentional, initial encounter 09/27/2021 Hypotension 09/27/2021 Polysubstance abuse 09/27/2021 Suicidal behavior with attempted self-injury Immunizations Immunization Administration Dates Next Due Influenza Vaccine, Quadrivalent, PF 09/27/2021 Social History Tobacco Use Types Packs/Day Years Used Date Smoking Tobacco: Every Day Cigarettes Smokeless Tobacco: Never Tobacco Cessation:Ready to Q uit: No; Counseling Given: Yes Alcohol Use Standard Drinks/Week Comments Not Currently 0 (1 standard drink = 0.6 oz pur e alcohol) Sexually Active Control Partners Comments Yes Male Comments Unknown Sex and Gender Information Value Date Recorded Sex Assigned at Not on file Legal Sex Female 11:56 PM CDT Gender Identity Not on file Sexual Orientation Not on file Last Filed Vital Signs Vital Sign Reading Time Taken Comments Blood Pressure 100/63 03/03/2023 8:00 AM CDT Pulse 87 03/03/2023 8:00 AM CDT Temperature 36.1 C (97 F) 03/03/2023 8:00 AM CDT Respiratory Rate 18 03/03/2023 8:00 AM CDT Oxygen Saturation 97% 03/03/2023 8:00 AM CDT Inhaled Oxygen Concentration - - Weight 56.7 kg (125 lb) 02/28/2023 12:03 PM CDT Height 160 cm (5' 3) 02/28/2023 12:03 PM CDT Body Mass Index 22.14 02/28/2023 12:03 PM CDT Plan of Treatment Not on file Insurance MEDICAID [employer] [place]ID [place] Advance Directives * Full Code (Latest Code Status on File) Date Activated Date Inactivated Comments 03/01/2023 11:27 AM 03/03/2023 2:35 PM CPR-Full Tr eatment: FULL ARREST: Attempt Resuscitation/CPR wit intubation and mechanical ventilation. PRE-ARREST: Use entire range of life support measures to stabilize the patient. * Full Code Date Activated Date Inactivated Comments 09/26/2021 11:07 PM 09/28/2021 12:37 AM CPR-Full Treatment: FULL ARREST: Attempt Resuscitation/CPR wit intubation and mechanical ventilation. PRE-ARREST: Use entire range of life support measures to stabilize the patient. Care Teams Wire Strander Relationship Specialty Start Date End Date Provider, None [place] PCP - General 09/26/21
--- OUTSIDE RECORDS SUMMARY | 2025-03-26 10:42 | XMS_ITS | Clinical Summary ---
Author Organization [facility] Address [address] [place] [address] Care Team Providers Care Content Production Specialist Name Role Phone Miscellaneous, Not In File Primary Care Provider Unavailable Allergies No known active allergies Medications No [...] avoidance of other substances. An Anesthesia and [place] Medicine consult will be obtained in the [...] dose: * UDS today: * PMDP review: [facility]: * [place]: * Qtrimester CMP: planned Social work referral: planned Third [...] education: completed in all 3 trimesters [] Material Handling Equipment [employer]: [] Car seat discussed [] PP depression counseling Polysubstance abuse 06/18/2024 Cigarette smoker 06/18/2024 Other chest pain 06/18/2024 Opioid withdrawal 06/17/2024 Estimated Date of Delivery Comme nts Yes 07/11/2025 Based on Ultraso und Encounters Date Type Department Care Team Description 03/24/2025 Telephone Obstetrics and Gynecology Clinic [address] [place] [address] [facility] Floor [address] [place] [phone] Palma Kwon, KIM 03/24/2025 Telephone Obstetrics and Gynecology Clinic [address] [place] [address] 3rd Floor [address] [place] [phone] Palma Kwon RN 03/23/2025 Telephone Obstetrics and Gynecology Clinic [address] [place] [address] Floor [address] [place] [phone] Mary Valdes from Last 3 Months Social History Tobacco Use Types Packs/Day Years Used Date Smoking Tobacco: Never Smokeless Tobacco: Never Alcohol Use Standard Drinks/Week Comments Never 0 (1 standard drink = 0.6 oz pur e alcohol) [facility] Utilities Answer Date Recorded In the past 12 months has [employer] gas, oil, or water [employer] threatened to shut off services in your [...] often do you attend chur ch or zoroastrianism services? Never 06/18/2024 Do you belong to any clubs o r organizations such as orthodox groups, unions, fraternal or athletic groups, or [...] any time in the past 12 m [facility], were you homeless or living in a chcf (including now)? No 06/18/2024 Personal Safety Answer [...] on file Legal Sex Female 11:13 AM CISTERN ROOM WORKING SUPERVISOR Gender Identity Not on file Sexual Orientation Not on file Obstetrics History Para Term AB IAB SAB Ectopic Multiple Livin g Live Births 1 Date Outcome GA Total Labor Labor/2nd/3rd Weight Sex Type Anes PTL Sara A1 A5 Name Clin Current Summary Episode Dates Number of Fetuses Estimated Date of Delivery 12/08/2024 - Present (03/26/2025) 07/11/2025 (set by Dang Ng RN on 12/08/2024 based on Ultrasound on 12/08/2024) Dating Summary Based On ALEJO GA Diff Last Menstrual Period (LMP Unknown) Ultrasound on 12/08/2024 07/11/2025 Working GA:9w2d Patient Reported 07/15/2025 -4d Vitals Date GA Fund Present FHR Mvmt BP Weight Edema Alb Glu Ket Dil/ Eff/Sta 9w2d Inpatient data not displayed here. See encounter summary. Last Filed Vital Signs Vital Sign Reading Time Taken Comments Blood Pressure 101/66 12/08/2024 10:27 AM CISTERN ROOM WORKING SUPERVISOR Pulse 85 12/08/2024 10:27 AM CISTERN ROOM WORKING SUPERVISOR Temperature 36.4 C (97.6 F) 06/23/2024 2:00 PM CDT Respiratory Rate 18 06/23/2024 2:00 PM CDT Oxygen Saturation 96% 06/23/2024 2:00 PM CDT Inhaled Oxygen Concentration - - Weight 61.2 kg (135 lb) 06/23/2024 2:00 PM CDT Height 160 cm (5' 3) 06/23/2024 2:00 PM CDT Body Mass Index 23.91 06/23/2024 2:00 PM CDT Plan of Treatment Health Maintenance Due Date Last Done Comments Cervical Cancer Screening 2003 Depression Screening 2003 Regular Well Visit/Exam 18-64 2021 Meningococcal B Vaccine (2 of 2 - Bexsero SCDM 2-dose series) 03/04/2024 09/03/2023 Influenza Vaccine (Season Ended) 2025 09/27/2021, 08/22/2019, 09/08/2014, Additional history exists DTaP/Tdap/Td Vaccine (8 - Td or Tdap) 08/22/2029 08/22/2019, 09/08/2014, 07/09/2009, Additional history exists Pneumococcal vaccine <65 Completed 005, 10/04/2004, 01/18/2004, Additional history exists HPV Vaccines Completed 03/17/2016, 03/10/2015 Varicella Vaccines Completed 11/17/2019, 0 07/09/2009, 10/04/2004 Meningococcal Vaccine Aged Out 09/03/2023, 015 No longer eligible based on patient's age to complete this topic Hepatitis B Screening Completed 12/08/2024 , 04/27/2017, 03/23/2017, Additional history exists Hepatitis C Screening Completed 12/08/2024 , 06/18/2024, 03/08/2023 Procedures Procedure Name Priority Date/Time Associated Diagnosis Comments HEPATITIS C ANTIBODY STAT 12/08/2024 10:37 AM CISTERN ROOM WORKING SUPERVISOR from Last 3 Months or Most Recently Relevant to Health Maintenance Results * Hepatitis C antibody Blood (12/08/2024 10:37 AM CISTERN ROOM WORKING SUPERVISOR) Hep C Ab Nonreactive Nonreactive Comment: Antibodies [...] on 2020. Blood 12/08/2024 10:3 7 AM CISTERN ROOM WORKING SUPERVISOR 12/08/2024 12:45 PM CISTERN ROOM WORKING SUPERVISOR us Carola De La Rosa MD LAB MICROBIOLOGY - GENERAL ORDER CARLOS Final Result [facility] [address] [facility] Department [place] [address] from Last 3 Months or Most Recently Relevant to Health Maintenance Insurance * Guarantor: [employer]EN[employer]Y BOSS Account Type Relation to Patient Date of Phone Billing Address Personal/Family Other 1984 [address] [place] [id number] [place] [facility] Advance Directives For more information, please contact: [phone] Documents on File Type Date Recorded Patient Plate Printer Expl anation ADVANCE DIRECTIVE 06/18/2024 10:08 AM Power of Poultry Scientist-Medical * Full Code (Latest Code Status on File) Date Activated Date Inactivated Comments 06/18/2024 12:44 AM 06/20/2024 7:53 PM Care Teams Content Production Specialist Relationship Specialty Start Date End Date Miscellaneous, Not In File PCP - General 12/21/20
--- OUTSIDE RECORDS SUMMARY | 2025-03-26 10:42 | XMS_ITS | Clinical Summary ---
Author Organization [facility] Address Formerly [facility] [place] [address] Care Team Providers Care Pulley Worker Name Role Phone Kaiden Kenny MD Primary Care Provider [phone] Allergies No known active allergies Medications No known medications Immunizations Immunization Administration Dates Next Due [id number] (Pediarix) 03/21/2004,01/18/2004,0 2003 DTaP-IPV (Kinrix) 07/09/2009 Dtap (Acel-Immune) 08/30/2005,03/30/2005 HPV4 (Gardasil) 03/17/2016,03/10/2015 Hepatitis A 07/03/2008,09/19/2005 Hepatitis B Pediatric 04/27/2017,03/23/2017,08/14 Hib (Generic) 03/30/2005, 4,01/18/2004,11/16 Influenza (Generic) 11/03/2004 Influenza Adult (Generic) 09/27/2021,08/22/2019, 09/08/2014 MMR (MMRII) 11/17/2019,07/09/2009,01/09/2005 Meningococcal (Menactra) 03/10/2015 PFIZER COVID-19 (GRACE CAP), MRNA, LNP-S, PF, 30 MCG/0.3 ML DISHA-SUCROSE, IM 01/25/2022 Pneumococcal (Prevnar 7) 01/09/2005,09/13,01/18/2004,11/16 Tdap (Generic) 08/22/2019,09/08/2014 Varicella (Varivax) 11/17/2019,07/09/2009,2003 Social History Tobacco Use Types Packs/Day Years Used Date Smoking Tobacco: Every Day Cigarettes Tobacco Cessation:Ready to Q uit: Not Asked; Counseling Given: Not Answered Alcohol Use Standard Drinks/Week Comments Not Currently 0 (1 standard drink = 0.6 oz pur e alcohol) Comments No Sex and Gender Information Value Date Recorded Sex Assigned at Not on file Legal Sex Female 5:15 PM CDT Gender Identity Not on file Sexual Orientation Not on file Last Filed Vital Signs Vital Sign Reading Time Taken Comments Blood Pressure 103/69 03/11/2023 11:13 PM CDT Pulse 93 03/11/2023 11:13 PM CDT Temperature 36.7 C (98.1 F) 03/11/2023 11:13 PM CDT Respiratory Rate 18 03/11/2023 11:1 3 PM CDT Oxygen Saturation 100% 03/11/2023 11: 13 PM CDT Inhaled Oxygen Concentration - - Weight 62.5 kg (137 lb 12.6 oz) 023 11:13 PM CDT Height 160 cm (5' 3) 03/11/2023 11:13 PM CDT Body Mass Index 24.41 03/11/2023 11:13 PM CDT Plan of Treatment Health Maintenance Due Date Last Done Comments Cervical Cancer Screening Pap Smear (Age 21 to 29) Every 3 Years 2003 Cervical Cancer Screening 2003 Annual Physical 2006 Meningococcal B Vaccine (1 of 2 - [place]) 2019 Hepatitis C 2021 Pneumococcal Vaccine: Pediatrics (0 to 5 Years) and At-Risk Patients (6 to 49 Years) (1 of 2 - PCV) 2022 01/09/2005, 10/04/2004, 01/18/2004, Additional history exists COVID-19 Vaccine (2 - 2023- season) 2024 01/25/2022 PHQ-2 (Physician [place]) 11/12/2024 DTaP, Tdap and Td Vaccines (8 - Td or Tdap) 08/22/2029 08/22/2019, 09/08/2014, 07/09/2009, Additional history exists Meningococcal Vaccine Aged Out 03/10/2015 No nadia araceli eligible based on patient's age to complete this topic HPV Vaccines Completed 03/17/2016, 03/10/2015 Hepatitis B Vaccines Completed 04/27/2017, 03/23/2017, 03/21/2004, Additional history exists RSV Immunizations Under 20 Months Aged Out No longer eligible based on patient's age to complete this topic Insurance MEDICAID Care Teams Pulley Worker Relationship Specialty [place] [id number] [address] PCP - General INTERNAL MEDICINE 02/05/25
[2025-03-26 10:49] VITALS: BP 114/67; PULSE 100; TEMP 36.5
[2025-03-26 11:00] VITALS: BP 110/66; PULSE 96
[2025-03-26 11:06] VITALS: BMI 28.0
[2025-03-26 11:15] VITALS: BP 110/75; PULSE 86
[2025-03-26 11:46] LABS: OBXCEM ROM Plus Negative (Negative)
--- NOTE | 2025-04-21 07:31 | PM.OBTRLD ---
OB - Triage/Final Diagnosis Visit Information Comments/Additional reasons for admission: I have assessed the risk for this patient, Neris Guerin, and determined that she would benefit from observation care. Evaluation Laboratory results: Laboratory Tests 03/26/25 11:04 Membranes Rupture Rom plus negative Final Diagnosis (1) False labor: Code(s): O47.9 - False labor, unspecified Status: Acute
== END 2025-03-26 11:43 | disposition home or self-care (01) ==
PROVIDERS: Admitting Provider Obstetrics & Gynecology; PCP Advanced Practice Midwife; Visit Provider Obstetrics & Gynecology
DX: O47.02 False labor before 37 completed weeks of gestation, second trimester (principal); Z3A.25 25 weeks gestation of pregnancy
CPT/HCPCS: 84112; G0378; G0379

== ENCOUNTER 2025-06-12 11:16 | Outpatient (RCR) | payer OTHER, SELFPAY ==
--- NOTE | 2025-06-12 11:30 | PC.NURSE ---
Patient states she had vaginal bleeding since SVE in office. Is not using a pad. Brown spotting noted to underpants. Emilee Elena on unit. Orders for NST.
[2025-06-12 11:55] VITALS: TEMP 36.4
[2025-06-12 12:00] VITALS: BP 107/77; PULSE 90
== END 2025-07-09 13:34 | disposition other institution (70) ==
LOC: ANHOBOP 11:16
PROVIDERS: Visit Provider Advanced Practice Midwife
DX: O46.93 Antepartum hemorrhage, unspecified, third trimester (principal); Z3A.36 36 weeks gestation of pregnancy
CPT/HCPCS: 59025

== ENCOUNTER 2025-06-30 22:24 | Inpatient (IN) | payer OTHER, SELFPAY ==
[2025-06-30 23:00] VITALS: BP 139/83; PULSE 82
[2025-06-30 23:01] VITALS: BP 133/83; PULSE 110
[2025-06-30] MEDS: LACTATED RINGERS 1,000 ML 999 ML (23:18)
[2025-06-30 23:27] VITALS: BMI 31.4
[2025-06-30 23:31] VITALS: BP 126/88; PULSE 110
[2025-06-30 23:38] LABS: Hematocrit 32.9 % (37.0-47.0); Hemoglobin 10.0 g/dL (12.0-15.0); Immature Granulocyte Percent A 0.6 % (0-0.5); Lymphocytes Absolute Auto 2.87 K/mm3 (0.9-3.2); Mean Corpuscular HGB Conc 30.4 g/dl (32-36); Mean Corpuscular Hemoglobin 22.6 pg (26-34); Mean Corpuscular Volume 74.3 fl (80-100); Nucleated Red Blood Cells Absolute Auto 0.000 K/mm3 (0.0-0.012); Nucleated Red Blood Cells Perc 0.0 % (0.0-0.2); Platelet Count Result 399 k/mm3 (150-375); Red Blood Count 4.43 M/mm3 (4.2-5.4); White Blood Count 11.9 K/mm3 (4.5-10.0)
[2025-06-30 23:47] VITALS: BP 103/33; PULSE 100
[2025-06-30 23:52] VITALS: BP 150/53; PULSE 103
[2025-06-30 23:56] LABS: Anisocytosis 1+; Burr Cells 1+; Microcytosis 1+ (NORMAL); Ovalocytes 1+; Schistocytes None Seen
[2025-07-01] VITALS (102 sets, daily range): BP systolic 72–152; BP diastolic 28–111; PULSE 56–188; RESP 14–18; TEMP 36.4–37.4; O2SAT 98–100; BMI 32.0
[2025-07-01 00:05] LABS: Cannabinoid Screen Urine Negative (Negative)
[2025-07-01 00:36] LABS: Syphilis IgG/IgM Antibody Reactive (Nonreactive)
--- NOTE | 2025-07-01 00:47 | P.PNAN_ITS ---
Anes - Initial Pre Proc Eval Procedure: labor epidural Date/Time: 07/01/25 00:47 Surgeon: Sterling Lawler MD Pre Op Diagnosis: labor pain Patient Data Age: 19 Gender: F Height: 1.61 m Weight: 81.81 kg Last Vital Signs Pulse 94 07/01/25 00:46 BP 115/65 07/01/25 00:46 Pulse Ox 100 07/01/25 00:34 Allergies Allergy/AdvReac Type Severity Reaction Status Date / Time No Known Allergies Allergy Unknown Verified 06/05/25 14:25 Home Medications ?Medication ?Instructions ?Recorded ?Confirmed ?Type vit no.95-ferrous 1 tablet PO DAILY 03/26/25 06/05/25 History fumarate 28 mg-folic acid 800 mcg tablet () Laboratory Tests 06/30/25 06/30/25 23:23 23:24 WBC 11.9 H K/mm3 (4.5-10.0) RBC 4.43 M/mm3 (4.2-5.4) Hgb 10.0 L g/dL (12.0-15.0) Hct 32.9 L % (37.0-47.0) MCV 74.3 L fl (80-100) MCH 22.6 L pg (26-34) MCHC 30.4 L g/dl (32-36) RDW 16.9 H % (11.5-14.5) Plt Count 399 H k/mm3 (150-375) MPV 10.3 fl (7.4-10.4) Immature Gran % (Auto) 0.6 H % (0-0.5) Neut % (Auto) 69.5 % (45.5-73.1) Lymph % (Auto) 24.2 % (18.3-44.2) Dickens % (Auto) 4.8 % (2.6-8.5) Eos % (Auto) 0.6 % (0-4.4) Baso % (Auto) 0.3 % (0.2-1.2) Lymph # (Auto) 2.87 K/mm3 (0.9-3.2) Dickens # (Auto) 0.6 K/mm3 (0.1-0.6) Eos # (Auto) 0.1 K/mm3 (0-0.3) Baso # (Auto) 0.0 K/mm3 (0.0-0.1) Abs Immat Gran (auto) 0.07 H K/mm3 (0.00-0.031) Absolute Neuts (auto) 8.3 H K/mm3 (1.3-6.7) Absolute Nucleated RBC 0.000 K/mm3 (0.0-0.012) Band Neutrophils % Not Reportable Nucleated RBC % 0.0 % (0.0-0.2) Platelet Estimate Slightly increased (Adequate) Anisocytosis 1+ Microcytosis 1+ (NORMAL) Ovalocytes 1+ [place] Cells 1+ Schistocytes None seen Urine Opiates Screen Negative (Negative) Urine Methadone Screen Negative (Negative) Ur Barbiturates Screen Negative (Negative) Ur Phencyclidine Scrn Negative (Negative) Ur Amphetamine Screen Negative (Negative) U Benzodiazepines Scrn Negative (Negative) Urine Cocaine Screen Negative (Negative) U Cannabinoids Screen Negative (Negative) Syphilis IgG/IgM Ab Reactive A (Nonreactive) RPR Pending Treponema pallidum Ab Pending Blood Type A Positive Antibody Screen Pending Patient hx anesthesia problems: none Family hx anesthesia problems: none Results Review: All pre-operative results and documents have been reviewed as part of the pre- operative evaluation. [facility] Family History Family History Other Unknown family medical history Social History Social History Substance use: never Do You Feel Safe in your Home?: Yes Lack of Transportation: No Lack of Food: Never True Current Housing: I Have Housing Concerned About Future Housing: No Difficulty Paying Gas/Electric Bills: No Difficulty Paying for Meds: No Currently Unemployed: YES Education: High School Diploma/GED Difficulty w/ Childcare or Family Care: No Spiritual care concerns: No Anes - Eval Final PreProcedure Day of Procedure 07/01/25 00:47 Heart: regular rate and rhythm Lungs: clear to auscultation and normal air movement Airway: Mallampati scale class 1 Neurological: alert and oriented ASA classification: II Anesthetic plan: proceed Anesthesia type and monitoring: regional epidural and standard monitoring Results Review: All pre-operative results and documents have been reviewed as part of the pre- operative evaluation. Informed Consent: The patient's anesthetic plan and its attendant risks and benefits were discussed with the patient/family/POA. Questions were solicited and answers provided to the satisfaction of the patient/family/POA.
[2025-07-01] MEDS: TERBUTALINE SULFATE 1 MG/ML VIAL 0.25 MG SUB-Q (01:13)
--- NOTE | 2025-07-01 01:45 | WPDOBADMIT ---
Obstetrics - Admit Note Admission Note: record reviewed. No pertinent additions to the history and/or any subsequent changes in the physical findings that are not consistent with the expected course of the were found. Additions to the history and/or subsequent changes in the physical findings follow. SVE /-2 AROM clear fluid anticipate vaginal fluid
[2025-07-01] MEDS: LACTATED RINGERS 500 ML 999 ML IV CONT (04:01)
[2025-07-01] MEDS: PHENYLEPHRINE 1,000 MCG/10 ML SYRINGE 100 MCG IV PUSH ×4 (04:03→04:52)
[2025-07-01] MEDS: SODIUM CHLORIDE 0.9% IV 300 ML 600 ML I-UTERINE (04:56)
[2025-07-01] MEDS: OXYTOCIN 30 UNITS/NS 500 ML 30 UNITS/500 ML BAG IV CONT (06:34)
--- NOTE | 2025-07-01 06:51 | LDADM ---
This patient, Neris Leone, was admitted to Labor/Delivery/Recovery 107 on 06/30/25 at 22:24. Plans for labor, pain management and were discussed with patient. Patient/family oriented to hospital policies and general routines including ID bracelet, bed and alarms, visiting hours, pain management, procedures, bathroom and other care routines, personal items, smoking policy, room service/diet and guest tray routines, infant security routines, and visiting hours. Patient/Family are encouraged to report perceived risks to care and to ask questions if they do not understand what they are told or what they should do. See OBIX for further documentation.
--- NOTE | 2025-07-01 07:37 | PM.OBPRVD ---
OB - Vaginal Delivery Note Procedure Delivery date: 07/01/25 Intrapartal Events: Decelerations Induction method: None Delivery augmentation: Rupture of Membranes and Pitocin Delivery monitor: External FHT and Internal Uterine Route of delivery: Episiotomy description: None Laceration Description: None Specimen: No Quantitative Blood Loss (ml): 100 Anesthesia type: Epidural Disposition: Floor Complications: No immediate complications Baby Date of : 07/01/25 Time of : 07:25 Gestational Age by Date: 39 gender: Male presentation: vertex position: Left Occiput Anterior Placenta delivery description: Expressed Cord Vessel Description: 3 Vessels, Nuchal Cord (x1) and Around Body (x1) score one minute: 8 score five minutes: 10
[2025-07-01] MEDS: OXYTOCIN 30 UNITS/NS 500 ML 30 UNITS/500 ML BAG 125 UNITS IV CONT (08:04)
[2025-07-01] MEDS: ACETAMINOPHEN 325 MG TABLET 650 MG PO ×2 (09:44→19:26)
[2025-07-01] MEDS: WITCH HAZEL 40 PADS 1 PAD TOPICAL (09:45)
[2025-07-01] MEDS: BENZOCAINE 20% AER SPR (*SP) 56 GM CAN 1 SPRAY TOPICAL (09:45)
[2025-07-01] MEDS: MULTIVIT/MIN/PREN/FOL AC/IRON TABLET 1 TAB PO (09:45)
--- NOTE | 2025-07-01 10:06 | OBPPTRN ---
Patient transferred to post room #277 via wheelchair. Support person present. Oriented to unit, room, information board, rooming in, admission packet and security measures. Patient verbalizes understanding.
[2025-07-01 10:16] LABS: Reference Lab Test Name RPR w Rfx
[2025-07-01 10:16] LABS: Reference Lab Test Result Reactive
[2025-07-01 10:18] LABS: Reference Lab Test Result Nonreactive
[2025-07-01] MEDS: IBUPROFEN 600 MG TABLET PO ×2 (14:49→21:27)
[2025-07-01] MEDS: DOCUSATE SODIUM 100 MG CAPSULE PO (14:51)
[2025-07-02 04:20] VITALS: BP 114/74; PULSE 78; RESP 16; TEMP 36.7; O2SAT 100
[2025-07-02] MEDS: IBUPROFEN 600 MG TABLET PO ×3 (04:21→18:59)
[2025-07-02 04:49] LABS: Hematocrit 29.4 % (37.0-47.0); Hemoglobin 8.8 g/dL (12.0-15.0)
[2025-07-02 05:02] LABS: Reference Lab Test Name Treponemal IgG/IgM
--- NOTE | 2025-07-02 08:24 | P.PNOB_ITS ---
OB - PN: Subj Subjective Date/time seen: 07/02/25 08:24 Patient comments: no complaints, pain well controlled, incisional pain, tolerating diet and flatus present OB - PN: Obj Data Labs 07/02/25 04:13 Labs: Laboratory Results - last 24 hr 06/30/25 06/30/25 06/30/25 23:24 23:24 23:24 Hgb Hct RPR Titer Cancelled Cancelled RPR Cancelled Cancelled Treponema pallidum Ab Cancelled T.pallidum Ab (TP-PA) Cancelled T.pallidum Ab Interpret Cancelled Ref Lab Test Name Treponemal igg/igm Ref Lab Test Result Reactive 07/01/25 07/02/25 23:24 04:13 Hgb 8.8 L Hct 29.4 L RPR Titer RPR Treponema pallidum Ab T.pallidum Ab (TP-PA) T.pallidum Ab Interpret Ref Lab Test Name Rpr w rfx Ref Lab Test Result Nonreactive OB - PN A/P Plan day: 1 Plan: routine care Comments: No problems, routine care Time Spent With Patient Time: Total time spent is greater than 50% in coordination of care (as documented) at patient's floor/unit and/or counseling patient: Exam 2 Const: General: comfortable, no acute distress and alert Resp: Effort & Inspection: normal respiratory effort Auscultation: no crackles, no rales and no rhonchi Cardio: Rate: regular rate Heart sounds: no click, no murmurs and no rubs GI: Inspection: non-distended GI Palp: No Tenderness to palpation present (GI) Auscultation: normal bowel sounds Other: Incision - CDI Extrem: General: normal to inspection, no pedal edema and no calf tenderness
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
[2025-07-02 08:35] VITALS: BP 119/77; PULSE 88; RESP 16; TEMP 36.9; O2SAT 100
[2025-07-02] MEDS: MULTIVIT/MIN/PREN/FOL AC/IRON TABLET 1 TAB PO (09:14)
[2025-07-02] MEDS: ACETAMINOPHEN 325 MG TABLET 650 MG PO ×3 (09:14→23:31)
[2025-07-02] MEDS: DOCUSATE SODIUM 100 MG CAPSULE PO ×2 (09:15→17:37)
--- NOTE | 2025-07-02 09:57 | PCCCNOTE ---
Pump Servicer Supervisor completed a DCFS report, Intake # listed as [id number]. Pump Servicer Supervisor spoke with Devon Corley at the hotline. CC shared with nurse Hoang that according to the report made, there are no current concerns at this time. According to Devon at the hotline, if the baby umbilical cord comes back positive for drugs, to call back into the hotline. Hotline number listed as .
--- NOTE | 2025-07-02 13:31 | WPDANLDPN2 ---
Anes-Prog Note L&D Date/Time: 07/02/25 13:31 Neuro status: Neuro function grossly intact. Cardiovascular status: normal Respiratory status: normal Airway patency: baseline Mental status: baseline Post-Op hydration status: normal Vital Signs: Last Vital Signs Temp 36.9 C 07/02/25 08:35 Pulse 88 07/02/25 08:35 Resp 16 07/02/25 08:35 BP 119/77 07/02/25 08:35 Pulse Ox 100 07/02/25 08:35 O2 Del Method Room Air 07/01/25 06:51 Pain score (VAS): 0 I/O: Intake & Output 07/01/25 07/02/25 07/02/25 23:59 07:59 15:59 Intake Total 0 Balance 0 Post-procedural complaints: none Patient feedback: Patient satisfied with anesthetic care.
--- NOTE | 2025-07-02 17:46 | PC.NURSE ---
1725. Mother verbalizes she is able to independently latch infant with appropriate positioning and alignment. She denies any nipple discomfort and is responsively . is currently meeting outcomes for weight, output, jaundice, blood sugar and feeding frequencies of 8-12 times in 24 hours. Mother declines any additional assistance or education at this time. Mother is encouraged to call for assistance if her doesn?t latch, pain with latching, questions or concerns. Mother voiced understanding of information shared along with the mom/baby guide for an additional resource. Reported to the Primary RN.
[2025-07-02] MEDS: WITCH HAZEL 40 PADS 1 PAD TOPICAL (18:59)
[2025-07-02] MEDS: BENZOCAINE 20% AER SPR (*SP) 56 GM CAN 1 SPRAY TOPICAL (18:59)
[2025-07-02 19:15] VITALS: BP 132/79; PULSE 92; RESP 16; TEMP 36.8; O2SAT 100
[2025-07-03 07:15] VITALS: BP 125/79; PULSE 78; RESP 16; TEMP 36.6; O2SAT 99
--- NOTE | 2025-07-03 08:11 | P.PNOB_ITS ---
OB - PN: Subj Subjective Date/time seen: 07/03/25 08:11 Interval history: pp day 2 desires d/c home OB - PN: Obj Data Labs 07/02/25 04:13 OB - PN A/P Plan day: 2 Plan: routine care and discharge home Time Spent With Patient Time: Total time spent is greater than 50% in coordination of care (as documented) at patient's floor/unit and/or counseling patient: Review of Systems 2 Review of Systems: All systems reviewed & are unremarkable except as noted in HPI and below Exam 2 Const: General: cooperative and healthy appearing Chest: Chest palpation & inspection: normal inspection of the chest Cardio: Rate: regular rate Back/Spine/Pelvis: Back: no CVA tenderness
--- NOTE | 2025-07-03 08:13 | P.DS_ITS ---
DS: Admitting Diagnosis Discharge Date 07/03/25 Admitting Diagnosis labor DS: Discharge Diagnosis Discharge Diagnosis (1) (normal spontaneous vaginal delivery): Code(s): O80 - Encounter for full-term uncomplicated delivery Status: Acute OB - DS: Summary OB Procedures : None OB Procedures Intrapartum: Spontaneous Vag Delivery OB Procedures: : None Peripartum Data Laceration Description: None Episiotomy description: None Time Spent with Patient Time attestation: Total time spent providing and/or coordinating discharge services: Discharge Plan Discharge Attending physician on discharge: Sterling Lawler Consulting providers: Emilee Elena Discharging Clinician: Emilee Elena Patient Disposition: Home Activity: pelvic rest Diet: regular Patient Instructions: Antibiotic Form Patient Language: Russian Stand Alone Forms: General Discharge Information Follow-up/Referrals: Emilee Elena CNM [Certified Nurse Electric Motor Assembler And Tester, [employer]] - 4 Weeks Discharge Medications: Continued PNV no.95-ferrous fumarate-FA [] 28 mg iron- 800 mcg tablet 1 tablet PO DAILY Date of admission: 06/30/25 22:24 Primary Care Provider: PHYSICIAN,INCOMING INSPECTOR Admitting Provider: Sterling Lawler Attending physician on admission: Sterling Lawler Condition: Stable
[2025-07-03] MEDS: MEASLES,MUMPS,RUBELLA VACCINE 0.5 ML VIAL SUB-Q (08:58)
[2025-07-03] MEDS: MULTIVIT/MIN/PREN/FOL AC/IRON TABLET 1 TAB PO (09:01)
[2025-07-03] MEDS: ACETAMINOPHEN 325 MG TABLET 650 MG PO (09:01)
[2025-07-03] MEDS: DOCUSATE SODIUM 100 MG CAPSULE PO (09:02)
[2025-07-03] MEDS: IBUPROFEN 600 MG TABLET PO (09:02)
--- NOTE | 2025-07-03 11:04 | PC.NURSE ---
Patient viewed the discharge video Mother & Baby Care, The First Two Weeks. Patient was given the opportunity and encouraged to ask questions. Patient verbalized understanding of information shared and has been given the mother/baby guide for home reference.
[2025-07-06 08:17] VITALS: BP 136/87; PULSE 80; RESP 18; TEMP 37; O2SAT 100
== END 2025-07-03 12:00 | disposition home or self-care (01) | DRG 560 ==
LOC: ANHLDR 07-01 00:48 → ANHOB2 07-01 10:17
PROVIDERS: Advanced Practice Midwife; Obstetrics & Gynecology; Admitting Provider Obstetrics & Gynecology; Visit Provider Obstetrics & Gynecology
DX: O69.81X0 Labor and delivery complicated by cord around neck, without compression, not applicable or unspecified (principal); Z37.0 Single live birth; Z3A.39 39 weeks gestation of pregnancy; O98.12 Syphilis complicating childbirth; A53.9 Syphilis, unspecified; O69.82X0 Labor and delivery complicated by other cord entanglement, without compression, not applicable or unspecified; O76 Abnormality in fetal heart rate and rhythm complicating labor and delivery
CPT/HCPCS: 36415; 80307; 85014; 85018; 85025; 86593; 86850; 86900; 86901; 90710; A9270; J2371; J2590; J2795; J3105; J7030; J7120